=== PATIENT | male | born 1990 | race Caucasian/White ===

== ENCOUNTER 2021-10-05 15:33 | Emergency (ER) | payer SELFPAY ==
[2021-10-05] MEDS ORDERED: NA CHLORIDE 0.9% 1,000 ML ONE ×2 (15:52→17:18)
[2021-10-05] MEDS ORDERED: ACETAMINOPHEN 500 MG TAB ONE (15:52)
--- NOTE | 2021-10-05 16:50 | RAD REPORT ---
EXAM DESCRIPTION: RAD - Chest Single View - 10/05/2021 4:36 pm CLINICAL HISTORY: DYSPNEA COMPARISON: No comparisons FINDINGS: Lines: None. Lungs: No evidence of edema or pneumonia. Pleural: No significant pleural effusions or pneumothorax. Cardiac: The heart size is within normal limits. Bones: No acute fractures. Krueger rods in the spine. Other: IMPRESSION: No acute cardiopulmonary disease.
[2021-10-05] MEDS ORDERED: IBUPROFEN 200 MG TAB PO ONE (17:18)
--- NOTE | 2021-10-05 17:59 | EDPHYS ---
Physician Documentation [facility] Name: Dami Varela Age: 31 yrs Sex: Male : 1990 Arrival Date: 10/05/2021 Time: 15:36 Bed 11 Private MD: ED Physician Derrick Norman HPI: 10/05 17:57 This 31 yrs old Male presents to ER via EMS with complaints of Headache, Fever. kb 17:57 The patient or guardian reports cough, difficulty breathing, flu symptoms, low-grade kb fever, myalgias. Onset: The symptoms/episode began/occurred this morning, at 02:00. Severity of symptoms: At their worst the symptoms were moderate, in the emergency department the symptoms are unchanged. Modifying factors: The symptoms are alleviated by nothing, the symptoms are aggravated by nothing. Associated signs and symptoms: Pertinent positives: fever, Pertinent negatives: chest pain, diarrhea, ear ache, nausea, rhinorrhea, sore throat, vomiting. The patient has not experienced similar symptoms in the past. The patient has not recently seen a physician. Pt reports cough, fever, shortness of breath, headache, bodyaches, malaise that started at 0200. Took a home COVID test that was positive. Historical: - Allergies: 15:38 No Known Allergies; hb - Immunization history:: Adult Immunizations up to date. - Social history:: Smoking status: Patient reports the use of cigarette tobacco products. ROS: 17:56 Cardiovascular: Negative for chest pain, palpitations, and edema. kb 17:56 Constitutional: Positive for body aches, chills, fatigue, fever, malaise. 17:56 Respiratory: Positive for cough, shortness of breath. 17:56 Neuro: Positive for headache. 17:56 All other systems are negative. Exam: 17:56 Constitutional: This is a well developed, well nourished patient who is awake, alert, kb and in no acute distress. Head/Face: Normocephalic, atraumatic. ENT: Moist Mucous membranes Cardiovascular: Regular rate and rhythm with a normal S1 and S2. No gallops, murmurs, or rubs. No pulse deficits. Respiratory: Respirations even and unlabored. No increased work of breathing. Talking in full sentences Abdomen/GI: Soft, non-tender. No distention Skin: Warm, dry with normal turgor. Normal color. MS/ Extremity: Pulses equal, no cyanosis. Neurovascular intact. Full, normal range of motion. Neuro: Awake and alert, GCS 15, oriented to person, place, time, and situation. Moves all extremities. Normal gait. Psych: Awake, alert, with orientation to person, place and time. Behavior, mood, and affect are within normal limits. Vital Signs: 15:36 BP 133 / 75; Pulse 135; Resp 18; Temp 100.6(TE); Pulse Ox 98% on R/A; Weight 68.04 kg; hb Height 5 ft. 9 in. (175.26 cm); Pain 7/10; 15:51 Pulse 128; Resp 20; Pulse Ox 99% ; mb8 17:00 BP 91 / 61; Pulse 115; Resp 20; Temp 98.9(O); Pulse Ox 98% ; Pain 5/10; mb8 17:48 BP 100 / 64; Pulse 116; Resp 16; Pulse Ox 99% ; Pain 3/10; mb8 18:08 BP 104 / 68; Pulse 106; Resp 18; Temp 98.3; Pulse Ox 99% ; Pain 2/10; mb8 15:36 Body Mass Index 22.15 (68.04 kg, 175.26 cm) hb MDM: 15:40 Patient medically screened. kb 17:56 Data reviewed: vital signs, nurses notes. Data interpreted: Pulse oximetry: on room air kb is 99 %. Interpretation: normal. Counseling: I had a detailed discussion with the patient and/or guardian regarding: the historical points, exam findings, and any diagnostic results supporting the discharge/admit diagnosis, radiology results, the need for outpatient follow up, a family practitioner, to return to the emergency department if symptoms worsen or persist or if there are any questions or concerns that arise at home. ED course: Sepsis due to viral illness (COVID).. 10/05 15:40 Order name: Chest Single View XRAY; Complete Time: 16:53 kb 10/05 16:53 Order name: Vital Signs; Complete Time: 17:01 kb Administered Medications: 15:50 Drug: Tylenol 1000 mg Route: PO; mb8 17:06 Follow up: Response: No adverse reaction; Pain is decreased mb8 15:50 Drug: NS 0.9% 1000 ml Route: IV; Rate: 1 bolus; Site: left antecubital; mb8 17:13 Follow up: Response: No adverse reaction; IV Status: Completed infusion mb8 17:13 Drug: Ibuprofen 600 mg Route: PO; mb8 17:41 Follow up: Response: No adverse reaction; Pain is decreased mb8 17:13 Drug: NS 0.9% 1000 ml Route: IV; Rate: 1000 ml; Site: left antecubital; mb8 18:05 Follow up: Response: No adverse reaction; Marked relief of symptoms; IV Status: mb8 Completed infusion Disposition: 18:46 Co-signature as Attending Physician, Derrick Norman MD. rn Disposition Summary: 10/05/21 17:58 Discharge Ordered Location: Home kb Condition: Stable kb Diagnosis - Coronavirus infection, unspecified kb Followup: kb - With: Emergency Department - When: As needed - Reason: Worsening of condition Followup: kb - With: Private Physician - When: 2 - 3 days - Reason: Recheck today's complaints, Continuance of care, Re-evaluation by your physician Discharge Instructions: - Discharge Summary Sheet kb - Viral Respiratory Infection, [id number] kb - COVID-19 kb Forms: - Medication Reconciliation Form kb - Thank You Letter kb - Antibiotic Education kb - Prescription Opioid Use kb Signatures: Dispatcher [employer] Effie Hirsch, WOOLING MACHINE OPERATOR-C WOOLING MACHINE OPERATOR-Derrick Aguilar MD MD rn Baxter, Heather, RN RN hb Bates, Michael, RN RN mb8
--- NOTE | 2021-10-05 17:59 | ER ---
Nurse's Notes [facility] Name: Dami Varela Age: 31 yrs Sex: Male : 1990 Arrival Date: 10/05/2021 Time: 15:36 Bed 11 Private MD: Diagnosis: Coronavirus infection, unspecified Presentation: 10/05 15:36 Chief complaint: Positive home COVID test this morning, c/o SOB and headache. NS 400 hb mls administered to 20g LAC prior to arrival. Coronavirus screen: Client presents with at least one sign or symptom that may indicate coronavirus-19. Standard/surgical mask placed on the client. Provider contacted for isolation considerations. Ebola Screen: No symptoms or risks identified at this time. Initial Sepsis Screen: Does the patient meet any 2 criteria?. Onset of symptoms was October 05, 2021. 15:36 Method Of Arrival: EMS: [facility] 15:36 Acuity: KAVIN 3 hb 15:36 Risk Assessment: Do you want to hurt yourself or someone else? Patient reports no hb desire to harm self or others. 15:54 Initial Sepsis Screen: Does the patient have a suspected source of infection? No. mb8 Patient's initial sepsis screen is negative. Triage Assessment: 15:53 Headache History: Denies prior headaches. General: Appears in no apparent distress. mb8 uncomfortable, Behavior is calm, cooperative, appropriate for age. Pain: Also complains of. Pain: Pain began work up with symptoms this morning. Historical: - Allergies: 15:38 No Known Allergies; hb - Immunization history:: Adult Immunizations up to date. - Social history:: Smoking status: Patient reports the use of cigarette tobacco products. Screenin:51 Abuse screen: Denies threats or abuse. Denies injuries from another. Nutritional mb8 screening: No deficits noted. Tuberculosis screening: No symptoms or risk factors identified. Fall Risk No fall in past 12 months (0 pts). No secondary diagnosis (0 pts). IV access (20 points). Ambulatory Aid- None/Bed Rest/Nurse Assist (0 pts). Gait- Normal/Bed Rest/Wheelchair (0 pts) Mental Status- Oriented to own ability (0 pts). Total Caal Fall Scale indicates No Risk (0-24 pts). Assessment: 15:50 General: Appears in no apparent distress. uncomfortable, Behavior is calm, cooperative, mb8 appropriate for age. Pain: Complains of pain in Generalized bodyaches Pain currently is 6 out of 10 on a pain scale. at worst was 10 out of 10 on a pain scale. Quality of pain is described as aching. Neuro: No deficits noted. Cardiovascular: Denies chest pain. Respiratory: No deficits noted. Breath sounds are clear bilaterally. 16:16 Reassessment: Patient and/or family updated on plan of care and expected duration. Pain mb8 level reassessed. Patient is alert, oriented x 3, equal unlabored respirations, skin warm/dry/pink. Patient states feeling better. 17:01 Reassessment: Patient and/or family updated on plan of care and expected duration. Pain mb8 level reassessed. Patient is alert, oriented x 3, equal unlabored respirations, skin warm/dry/pink. Patient states feeling better. Vital Signs: 15:36 BP 133 / 75; Pulse 135; Resp 18; Temp 100.6(TE); Pulse Ox 98% on R/A; Weight 68.04 kg; hb Height 5 ft. 9 in. (175.26 cm); Pain 7/10; 15:51 Pulse 128; Resp 20; Pulse Ox 99% ; mb8 17:00 BP 91 / 61; Pulse 115; Resp 20; Temp 98.9(O); Pulse Ox 98% ; Pain 5/10; mb8 17:48 BP 100 / 64; Pulse 116; Resp 16; Pulse Ox 99% ; Pain 3/10; mb8 18:08 BP 104 / 68; Pulse 106; Resp 18; Temp 98.3; Pulse Ox 99% ; Pain 2/10; mb8 15:36 Body Mass Index 22.15 (68.04 kg, 175.26 cm) hb ED Course: 15:36 Patient arrived in ED. rg4 15:38 Triage completed. hb 15:38 Arm band placed on. hb 15:40 Effie Alatorre FNP-C [facility]. kb 15:40 Derrick Norman MD is Attending Physician. kb 15:40 Cory Collier, FRANCY is Primary Nurse. mb8 15:52 Patient has correct armband on for positive identification. Bed in low position. Call mb8 light in reach. Side rails up X2. 15:52 No provider procedures requiring assistance completed. Inserted EMS started 20ga L AC mb8 PROVIDER RELATIONS MANAGER. 16:38 Chest Single View XRAY In Process Unspecified. EDMS 18:08 IV discontinued, intact, bleeding controlled, No redness/swelling at site. Pressure mb8 dressing applied. Administered Medications: 15:50 Drug: Tylenol 1000 mg Route: PO; mb8 17:06 Follow up: Response: No adverse reaction; Pain is decreased mb8 15:50 Drug: NS 0.9% 1000 ml Route: IV; Rate: 1 bolus; Site: left antecubital; mb8 17:13 Follow up: Response: No adverse reaction; IV Status: Completed infusion mb8 17:13 Drug: Ibuprofen 600 mg Route: PO; mb8 17:41 Follow up: Response: No adverse reaction; Pain is decreased mb8 17:13 Drug: NS 0.9% 1000 ml Route: IV; Rate: 1000 ml; Site: left antecubital; mb8 18:05 Follow up: Response: No adverse reaction; Marked relief of symptoms; IV Status: mb8 Completed infusion Medication: 15:51 VIS not applicable for this client. mb8 Outcome: 17:58 Discharge ordered by . shayla 18:08 Discharged to home ambulatory. mb8 18:08 Condition: stable 18:08 Discharge instructions given to patient, family, Instructed on discharge instructions, follow up and referral plans. medication usage, Demonstrated understanding of instructions, follow-up care, medications. 18:09 Patient left the ED. mb8 Signatures: Dispatcher [employer] EDMS Effie Alatorre, GEOMORPHOLOGIST-C GEOMORPHOLOGIST-Katelyn Brice RN RN hb Garcia, Rubi rg4 Cory Collier RN RN mb8 Corrections: (The following items were deleted from the chart) 15:40 15:36 BP 133 / ???; Pulse 135bpm; Resp 18bpm; Pulse Ox 98% RA; Temp 100.6F Temporal; hb Pain 7/10; hb
[2021-10-05 19:01] VITALS: O2SAT 99
[2021-10-05 19:03] VITALS: BP 104/68; TEMP 98.3
== END 2021-10-05 18:09 | disposition home or self-care (01) ==
LOC: ER 15:33
DX: U07.1 COVID-19 (principal); Z72.0 Tobacco use
CPT/HCPCS: 71045; 96360; 96361; 99284; J7030